=== PATIENT | male | born 1935 | race Caucasian/White ===

== ENCOUNTER 2018-07-01 08:55 | Inpatient (IN) ==
[2018-07-01] MEDS ORDERED: CeFAZolin Syr 2,000MG/20 ML 2,000 MG/20 ML SYRINGE IVPB ONE (09:21)
[2018-07-01] MEDS ORDERED: Ringers Solution, Lactated 1,000 ML IVC SCH (09:30)
--- NOTE | 2018-07-01 10:27 | History & Physical Report ---
Date of Encounter: 07/01/18 Time of Encounter: 10:27 24 Hour HP Update - Instructions Instructions: If the History and Physical is less than 30 days old and was completed prior to A.M. admission and or procedure and has NOT been updated on calendar day of procedure please complete this update prior to performing procedure. - Update Patient reports changes in Medical Condition: No Changes in examination, assessment, or condition: No Changes in Medication: No Preop tests/diagnostics Reviewed: Yes Surgery Remains Indicated: Yes Consent for Planned Operative Procedure(s) Verified: Yes - Pre-Operative Checklist Preoperative Checklist Indicated: No Prophylactic Antibiotic Ordered: Yes Is VTE Prophylaxis Indicated?: Yes
--- NOTE | 2018-07-01 10:28 | Discharge Summary ---
<eBto Mckeon - Last Filed: 07/01/18 11:26> Orders not resulted at time of discharge: Pending orders 07/01/18 09:17 Hemoglobin and Hematocrit [HEME] Routine Date of Encounter: 07/01/18 - Discharge Diagnosis (1) Left rotator cuff tear arthropathy Priority: Primary Status: Chronic (2) Status post reverse total arthroplasty of left shoulder Priority: Primary Status: Acute (3) Hypertension Priority: Secondary Status: Chronic Qualifiers: Hypertension type: unspecified Qualified Code(s): I10 - Essential (primary ) hypertension (4) Hyperlipidemia Priority: Secondary Status: Chronic Qualifiers: Hyperlipidemia type: unspecified Qualified Code(s): E78.5 - Hyperlipidemia , unspecified (5) Type 2 diabetes mellitus Priority: Secondary Status: Acute Qualifiers: Diabetes mellitus terminal worker insulin use: unspecified mcc insulin use status Diabetes mellitus complication status: without complication Qualified Code(s): E11.9 - Type 2 diabetes mellitus without complications (6) Status post aorto-coronary artery bypass graft Priority: Secondary Status: Chronic (7) Coronary artery disease Priority: Secondary Status: Chronic Qualifiers: Coronary Disease-Associated Artery/Lesion type: [place] artery [place] vs. transplanted heart: [place] heart Associated angina: angina presence unspecified Qualified Code(s): I25.10 - Atherosclerotic heart disease of [place] coronary artery without angina pectoris (8) Obstructive sleep apnea Priority: Secondary Status: Chronic - Hospital Course Hospital course: Mr. Dodson is a 82 year old male - Time Spent with Patient Total time spent providing and/or coordinating discharge services: - Discharge Medications Home Medications: Aspirin [[place] Aspirin EC] 81 mg PO DAILY 07/01/18 [History] Benazepril HCl [Lotensin] 20 mg PO DAILY 07/01/18 [History] Cetirizine HCl [Zyrtec] 10 mg PO DAILY 07/01/18 [History] Fenofibrate 60 mg PO DAILY 07/01/18 [History] Fluticasone Propionate Nasal [Flonase] 1 spray NS DAILY PRN 07/01/18 [History] Furosemide [Lasix] 20 mg PO DAILY 07/01/18 [History] HYDROcodone/Acet 5/325 mg [[place] 5-325 mg] 1 tab PO BID PRN 07/01/18 [History] Insulin Glargine,Hum.rec.anlog [Basaglar Kwikpen U-100] 7 - 13 unit SQ DAILY [History] LORazepam [Ativan] 0.5 mg PO Q6H PRN 07/01/18 [History] Metoprolol Succinate 100 mg PO DAILY 07/01/18 [History] Omeprazole [PriLOSEC] 40 mg PO DAILY 07/01/18 [History] Potassium Chloride [K-Tab ER] 20 meq PO Q48H 07/01/18 [History] Rosuvastatin Calcium [Crestor] 20 mg PO DAILY 07/01/18 [History] SitaGLIPtin [Januvia] 100 mg PO DAILY 07/01/18 [History] Allergies/Adverse Reactions: 3 Allergy/AdvReac Type Severity Reaction Status Date / Time NSAIDS (Non-Steroidal Allergy Gastrointestinal Verified 07/01/18 10:00 Anti-Inflamma Upset Primary care physician: Roby Engle MD - Patient Status Disposition: Home, Self-Care Condition: Good - Discharge Instructions Follow Up With: Nayana Arvizu PAC [Physician Cue Worker] - 07/09/18 8:45 am Roby Engle MD [Primary Care Provider] - Additional Instructions: Discharge Instructions: Total Shoulder Please call [facility] ([phone]), your Primary Care Physician, or report to the Emergency Room if you have any of the following symptoms: Nausea, vomiting, fever greater that 101.5, swelling, chest pain, shortness of breath, increased pain/redness/drainage/odor for your incision site, numbness/ tingling, or any other concerning symptoms. ACTIVITY: Always keep your arm in the sling. Do not raise your arm away from your body. Do not use your arm to help with getting in or out of bed. No weight bearing permitted. Only perform those exercises given to you by your therapist. Incentive Spirometer 10 times an hour. MEDICATIONS: Upon discharge resume your home medications. Take all the medications as prescribed. Take a stool softener if taking narcotic pain medications. Stool softeners are only effective if you drink enough fluids. Drink 6-8 glass of water or fluids a day, unless this is not allowed for another health problem. Despite using stool softeners, if you haven't had a bowel movement in 3 days, please switch to a gentle laxative. Gentle laxatives are sold over the counter. You should have a bowel movement within 24 hours, if not call the office. You will be discharged from the hospital with a prescription for pain medication. You are encouraged to decrease the use of narcotic pain medication as tolerated. Should you require a refill, please call the office. [facility] prescribes narcotic pain medication for only 4-6 weeks after surgery. If you require pain medication beyond this time period, you may be referred to your Primary Care Physician or to the Pain Clinic for further evaluation. Plan ahead for refills on pain medication as many narcotics either need to be picked up at the office or mailed. It is best to call 48-72 hours in advance of needing a prescription refill so you don't run out of medication. To help control the post-operative pain, you may take NSAIDs (Aleve,Advil, Motrin, Ibuprofen, Naprosyn) or Tylenol as prescribed on the bottle in addition to the pain medication. WOUND CARE: Leave the dressing on for 7-10 days. You may change the dressing if it becomes saturated greater than 50%. Do not get the dressing wet at anytime. Wash your hands with antibacterial soap, rinse and dry prior to any wound care. If you have guillaume the visiting nurse or rehab facility can remove the stapes 10-14 days after surgery and place steri-strips across the wound. Leave the steri-strips in place until they fall off on their own. You may let water from the shower run on top of the steri-strips. If you do not have a visiting nurse or rehab facility, you will need to return to the office at 10-14 days for the guillaume to be removed. If you have itching or redness around the dressing call the office. FOLLOW-UP: Please follow up with your surgeon in the orthopedic clinic, as scheduled <Helga Lipscomb - Last Filed: 07/02/18 13:01> Orders not resulted at time of discharge: Pending orders 07/01/18 11:14 US anesthesia pain block [US] Routine 07/01/18 12:37 Surgical Pathology [PTH] Routine 07/03/18 04:00 Hemoglobin and Hematocrit [HEME] AM 0400 Date of Encounter: 07/02/18 Time of Encounter: 12:00 - Discharge Diagnosis (1) Status post reverse total arthroplasty of left shoulder Priority: Primary Status: Acute (2) Type 2 diabetes mellitus Priority: Secondary Status: Acute Qualifiers: Diabetes mellitus terminal worker insulin use: unspecified mcc insulin use status Diabetes mellitus complication status: without complication Qualified Code(s): E11.9 - Type 2 diabetes mellitus without complications (3) Coronary artery disease Priority: Secondary Status: Chronic Qualifiers: Coronary Disease-Associated Artery/Lesion type: [place] artery [place] vs. transplanted heart: [place] heart Associated angina: angina presence unspecified Qualified Code(s): I25.10 - Atherosclerotic heart disease of [place] coronary artery without angina pectoris (4) Hyperlipidemia Priority: Secondary Status: Chronic Qualifiers: Hyperlipidemia type: unspecified Qualified Code(s): E78.5 - Hyperlipidemia , unspecified (5) Hypertension Priority: Secondary Status: Chronic Qualifiers: Hypertension type: unspecified Qualified Code(s): I10 - Essential (primary ) hypertension (6) Left rotator cuff tear arthropathy Priority: Primary Status: Chronic (7) Obstructive sleep apnea Priority: Secondary Status: Chronic (8) Status post aorto-coronary artery bypass graft Priority: Secondary Status: Chronic - Hospital Course Hospital course: Mr. Dodson is a 82 year old male status post Total Shoulder Replacment Reverse, left 07/01/18 with history of DMT2, HTN, HLD, CAD, JAMES. He had uneventful hospital course, participated with therapy. Stable for discharge. Patient seen at bedside, without complaints. A&O x 3 Afebrile, vital signs stable. Labs reviewed. H/H 14.6/42.6- stable, asymptomatic Pain control: adequate Participating in PT. All questions and concerns addressed. Educated on use of incentive spirometer. Encouraged ambulation and proper hydration. Patient educated on post-operative restrictions and post-operative care. Assessment and plan: Continue with postoperative care Discharge plan: Home , discharge today. Outpatient therapy scheduled to start tomorrow. - Time Spent with Patient Total time spent providing and/or coordinating discharge services: Date of admission: 07/01/18 14:05 Primary care physician: Roby Engle MD Consults: 07/01/18 14:06 Consult to Occupational Therapy [CONS] Routine Comment: post shoulder surgery Reason for Consult: post shoulder surgery Does patient have active BEDREST order?: No Is patient medically & hemodynamically stable?: Yes RT Post Op Consult [CONS] Routine Discharging clinician: Beto Mckeon Anticipated date of discharge: 07/02/18 Labs on day of discharge: Labs from last 24 hours 07/02/18 07/01/18 07/01/18 01:04 20:38 16:16 Hgb 14.6 Hct 42.6 POC Glucose 319 H 189 H 07/01/18 07/01/18 07/01/18 14:33 13:10 09:46 Hgb 14.4 D Hct 43.1 POC Glucose 151 H 159 H - Impressions ITS Impressions Shoulder X-Ray 07/01/18 10:32 IMPRESSION: Status post left shoulder arthroplasty without evidence of acute postoperative complication. D/ / 07/01/2018 14:22:52 Dequan Scott MD / [facility] Interpreting Provider: Dequan Scott MD - Patient Status Functional capacity at discharge: independent ambulation Overall status at discharge: patient is back to baseline - Diet and Activity Activity: as per physical therapy Diet: advance to your usual diet
[2018-07-01] MEDS ORDERED: *HR* FentaNYL (PF) 100 MCG/2 ML VIAL ONE (10:37)
[2018-07-01] MEDS ORDERED: *HR* Propofol 200 MG/20 ML VIAL IVP ONE (10:37)
[2018-07-01] MEDS ORDERED: *HR* Midazolam HCl 2 MG/2 ML VIAL ONE (10:37)
[2018-07-01] MEDS ORDERED: *HR* Rocuronium Bromide 50 MG/5 ML VIAL ONE (10:39)
[2018-07-01] MEDS ORDERED: MORPHINE SUL Oral CONC 10 MG/0.5 ML ORAL.SYG SL PRN (10:42)
[2018-07-01] MEDS ORDERED: *HR* OxyCODONE Immed Rel 5 MG TABLET PO PRN (10:42)
[2018-07-01] MEDS ORDERED: *HR* Labetalol 20 MG/4 ML SYRINGE IVP PRN (10:42)
[2018-07-01] MEDS ORDERED: *HR* Promethazine 25 MG/ML VIAL IVP PRN (10:42)
[2018-07-01] MEDS ORDERED: *HR* HYDROmorphone 2 MG TABLET PO PRN (10:42)
--- NOTE | 2018-07-01 11:09 | Anesthesia Evaluation PreOp ---
Date of Encounter: 07/01/18 Time of Encounter: 11:07 - Past History Planned Operation: Left Total Shoulder Cardiac History: HTN, Hyperlipidemia, Cardiac Surgery (CABG x 2, AVR in 2016), Cardiac Stent (stents x 2 in 2002) Pulmonary History: Former smoker (quit 50 years ago), Snore, JAMES Dx (does not use CPAP) PROJECT MANAGER FINANCE History: Denies Any Significant HX Other Medical History: Diabetes Type II Anesthesia History: No Prior Anesthetic Complications, Past Anesthesia Alcohol Use: none Drug use: none Medications and Allergies Aspirin [[place] Aspirin EC] 81 mg PO DAILY 07/01/18 [History] Benazepril HCl [Lotensin] 20 mg PO DAILY 07/01/18 [History] Cetirizine HCl [Zyrtec] 10 mg PO DAILY 07/01/18 [History] Fenofibrate 60 mg PO DAILY 07/01/18 [History] Fluticasone Propionate Nasal [Flonase] 1 spray NS DAILY PRN 07/01/18 [History] Furosemide [Lasix] 20 mg PO DAILY 07/01/18 [History] HYDROcodone/Acet 5/325 mg [[place] 5-325 mg] 1 tab PO BID PRN 07/01/18 [History] Insulin Glargine,Hum.rec.anlog [Basaglar Kwikpen U-100] 7 - 13 unit SQ DAILY [History] LORazepam [Ativan] 0.5 mg PO Q6H PRN 07/01/18 [History] Metoprolol Succinate 100 mg PO DAILY 07/01/18 [History] Omeprazole [PriLOSEC] 40 mg PO DAILY 07/01/18 [History] Potassium Chloride [K-Tab ER] 20 meq PO Q48H 07/01/18 [History] Rosuvastatin Calcium [Crestor] 20 mg PO DAILY 07/01/18 [History] SitaGLIPtin [Januvia] 100 mg PO DAILY 07/01/18 [History] 3 Allergy/AdvReac Type Severity Reaction Status Date / Time NSAIDS (Non-Steroidal Allergy Gastrointestinal Verified 07/01/18 10:00 Anti-Inflamma Upset - Meds/Allergy Pre-op Review Medications Reviewed: Yes Allergies Reviewed: Yes Beta Blockers on Current Med List: Yes If Beta Blockers taken, Date/Time (Last Dose taken): 07/01/2018 at 0800 Anesthesia Results - Labs Laboratory Tests 06/30/18 06/30/18 06/30/18 15:20 15:20 15:20 WBC 8.7 Hgb 17.1 H Hct 49.7 Plt Count 149 PT 11.6 INR 1.0 APTT 31.2 Sodium 135 L Potassium 4.7 BUN 32 H Creatinine 1.36 H - Imaging EKG: report reviewed (06/30/[address] DEVIATION AND MODERATE T-WAVE ABNORMALITY, CONSIDER LATERAL ISCHEMIA) Anesthesia Exam O2 Sat Height 1.78 m Height 1.78 m Weight 93.44 kg Weight 93.44 kg O2 Sat by Pulse Oximetry 96 Vital Signs Temp Pulse Resp BP Pulse Ox 97.8 F 60 16 123/72 96 07/01/18 09:27 07/01/18 09:27 07/01/18 09:27 07/01/18 09:27 07/01/18 09:27 Blood Glucose* 159 Height: 5'10" Weight: 206 lbs NPO (# of Hours): 8 Pain Scale: 7 (left shoulder) Pain Scale Used: Numeric (1 - 10) - HEENT Pupil (Motor): EOMI Mallampati: II Teeth: Edentulous Denture Type: Upper: Complete, Lower: Complete Oral Opening: Greater than 3 - PROJECT MANAGER FINANCE LOC: Oriented PROJECT MANAGER FINANCE Motor: Normal RUE, Normal RLE, Normal LLE, Normal Face, Deficit LUE PROJECT MANAGER FINANCE Sensory: Normal: RUE, LUE, RLE, LLE, Deficit: Face (complete blindness left eye) - Cardiac Rhythm: Regular Murmur: None - Pulmonary Breath Sounds: bilateral Clear Respiratory Effort: Symmetrical Anesthesia Assess/Plan ASA Score: 3 Modified Rocco Scale for Level of Consciousness: Cooperative, oriented, and tranquil Anesthetic Plan: General, Regional Monitoring Plan: Standard Monitors Recovery Plan: PACU
[2018-07-01] MEDS ORDERED: ROPIVACAINE HCL/PF 0.5% 30 ML VIAL ONE (11:21)
[2018-07-01] MEDS ORDERED: Bupivacaine/Clonidine Syringe 1 EACH SYRINGE ONE (11:21)
[2018-07-01] MEDS ORDERED: EPHEDrine 50 MG/ML VIAL ONE (11:54)
[2018-07-01] MEDS ORDERED: *HR* PHENYLEPHRINE 1,000 MCG/10 ML SYRINGE IVP ONE (11:57)
[2018-07-01] MEDS ORDERED: Ondansetron 4 MG/2 ML VIAL ONE (11:59)
[2018-07-01] MEDS ORDERED: Dexamethasone 4 MG/ML VIAL ONE (11:59)
--- NOTE | 2018-07-01 12:31 | Anesthesia Procedures ---
Date of Encounter: 07/01/18 Time of Encounter: 11:30 Procedures: Anesthesia - Nerve Block Procedure Date: 07/01/18 Time: 11:30 Allergies/Adv Reactions: NSAIDS Pre-op Diagnosis: L shoulder arthropathy Surgical Procedure: L total shoulder replacement Checklist: Correct Patient Identifier, Correct procedure, History checked Correct side: Left Blood Thinner: No Monitor Applied: EKG, BP, Pulse Oximetry Supplemental Oxygen via Nasal Cannula (L/min): 2 Sedation: Versed (mg): 2 Sedation: Fentanyl (mcg): 100 Indication: Post Op Analgesia Pre-op Neuro Deficits: No Block Type: Supraclavicular Catheter placed: No Ultrasound used: Yes Anatomy identified: Yes Visual spread of Local: Yes Neuro Stimulation: No Blood on Needle Aspiration: No Smooth Injection of Local: Yes Pain with Injection of Local: No Prep: Chlorhexadine Needle: 22 x 50 mm Stimuplex Local: 0.25% Bupivicaine w/Clonidine 20 mcg/cc, Ropivacaine Volume (cc): 50 Number of Attempts: 1 Complications: None/effective block Vitals: Last Vital Signs Temp 97.8 F 07/01/18 09:27 Pulse 60 07/01/18 09:27 Resp 16 07/01/18 09:27 BP 123/72 07/01/18 09:27 Pulse Ox 96 07/01/18 09:27
--- NOTE | 2018-07-01 12:47 | Orthopedic Operative Note ---
Date of procedure: 07/01/18 Pre-op diagnosis: Left shoulder cuff tear arthropathy Post-op diagnosis: same Procedure: Procedure: Total Shoulder Replacment Reverse, left Estimated blood loss: 75 cc Hardware: Metal and polyethylene replacement: Arthrex 28, +2 , 30 screw glenoid baseplate, 2 4.5 screws. 2 5.5 screw, 2+4 glenosphere, 12 humeral stem, poly insert 3 Exam Under anesthesia: Full motion no instability Procedural Notes: Irreparable tear supraspinatus tendon. Operative procedure: The patient was brought to the operating room and placed on the operating room table. After general anesthesia was administered the operative shoulder was examined. Findings were noted. The patient was placed in the modified beachchair position. All pressure points were padded appropriately. And the head was stabilized in the neutral position. The operative extremity was prepped and draped in the sterile surgical fashion. The patient received IV antibiotics prior to skin incision. A standard deltopectoral approach was made to the operative shoulder. Incision was made to the skin and subcutaneous tissue,hemo stasis was obtained with Bovie cautery. Using careful blunt dissection the cephalic vein was identified and mobilized medially. The deltopectoral interval was developed and the clavipectoral fascia was incised. The subscap was released off the lesser tuberosity and tagged with #2 FiberWire suture subscap was irreparable. The humerus was dislocated patient noted to have irreparable tear supraspinatus tendon, and the humeral cut was made along the anatomic neck. Anterior and posterior Bankart retractors were placed to expose the glenoid. The glenoid guide was seated and the centering hole was made. It was reamed with the appropriate reamer. The 28 mm, +2, 30 mm screw was seated and secured with (2 ) 4.5 screws and 2 5.5 screw. The baseplate was irrigated and dried and the 42+4 Glenosphere was seated and secured with the Cross taper. The Cross taper was tested and found to be secure the humerus was redislocated and prepared with the diaphyseal reamers, followed by a broaching process up to the appropriate size 12 in the patient's anatomic version. The metaphyseal reamer was then utilized. Trial reduction found the shoulder to be relocatable. Trial components were removed and 12 stem was impacted in place in the patient's anatomic version. Trial reduction found the shoulder to be relocatable and stable with the appropriate 3 [place] Trial component was removed and the real implant was seated and secured the shoulder was reduced. The shoulder had excellent motion and excellent stability and no evidence of dislocation. The deep tissue was irrigated with pulse irrigation. The deltopectoral interval was closed with a running #1 PDS suture, subcutaneous tissue was irrigated and closed with 0 PDS suture, the skin was closed with Dermabond. The patient was placed in a sterile dressing, abduction brace and extubated. The patient was then transferred to the recovery room in stable condition. Anesthesia: GETA Surgeon: Beto Mckeon Was there an records management assistant present: No Estimated blood loss (cc): 75 Condition: stable Disposition: PACU
--- NOTE | 2018-07-01 13:26 | Anesthesia Evaluation Post Op ---
Date of Encounter: 07/01/18 Time of Encounter: 13:25 - Vital Signs Vital Signs: Selected Entries 07/01/18 13:24 Temperature 97.5 F L Pulse Rate 65 Respiratory Rate 12 Blood Pressure 126/67 O2 Sat by Pulse Oximetry 97 - Lungs Lungs: Clear Ascult./Percussion - Airway Airway: Non-obstructed - Cardiovascular Regular Rate - Mental Status Mental Status: Alert & Oriented, Answers Appropriately (very comfortable, good block) - Nausea Vomiting Nausea Vomiting: Not Present - Hydration Hydration: Ice chips - Discharge PostOp Status: Transfer Patient to floor
[2018-07-01 13:32] LABS: Hematocrit 43.1 % (37.5-50.1); Hemoglobin 14.4 g/dL (12.9-16.9)
[2018-07-01] MEDS ORDERED: traMADol 50 MG TABLET PO PRN (14:06)
[2018-07-01] MEDS ORDERED: Ondansetron 4 MG/2 ML VIAL IVP PRN (14:06)
[2018-07-01] MEDS ORDERED: Fluticasone Propionate Nasal 50 MCG/SPRAY BOTTLE NS PRN (14:06)
[2018-07-01] MEDS ORDERED: MOM Conc 10 ML UD.LIQ PO PRN (14:06)
[2018-07-01] MEDS ORDERED: *HR* Dextrose 50 % in Water (Syg) 50 ML SYRINGE IVP PRN (14:06)
[2018-07-01] MEDS ORDERED: Naloxone 0.4 MG/ML INJ IVP PRN (14:06)
[2018-07-01] MEDS ORDERED: D5% in Water 1,000 ML IVC PRN (14:06)
[2018-07-01] MEDS ORDERED: Sennosides 8.6 MG TABLET PO PRN (14:06)
[2018-07-01] MEDS ORDERED: Dextrose Gel 15 GM/37.5 ML TUBE PO PRN ×2 (14:06)
[2018-07-01] MEDS ORDERED: Temazepam 15 MG CAPSULE PO PRN (14:06)
[2018-07-01] MEDS: Insulin LISPRO 300 UNITS/3 ML VIAL SQ SCH ×3 (15:40→20:45)
[2018-07-01] MEDS: *HR* Enoxaparin 30 MG/0.3 ML SYRINGE SQ SCH (16:24)
[2018-07-01] MEDS: *HR* OxyCODONE Immed Rel 5 MG TABLET PO PRN (16:24)
[2018-07-01] MEDS ORDERED: *HR* Enoxaparin 30 MG/0.3 ML SYRINGE SQ SCH (18:00)
[2018-07-01] MEDS: *HR* LORazepam 0.5 MG TABLET PO PRN (20:38)
[2018-07-01] MEDS: *HR* OxyCODONE/APAP 5/325 TABLET PO PRN (20:38)
[2018-07-01] MEDS: Ringers Solution, Lactated 1,000 ML IVC SCH (22:48)
[2018-07-02 01:23] LABS: Hematocrit 42.6 % (37.5-50.1); Hemoglobin 14.6 g/dL (12.9-16.9)
[2018-07-02] MEDS: *HR* LORazepam 0.5 MG TABLET PO PRN ×2 (03:57→13:36)
[2018-07-02] MEDS: *HR* Enoxaparin 30 MG/0.3 ML SYRINGE SQ SCH ×2 (05:15→17:02)
[2018-07-02] MEDS: *HR* OxyCODONE Immed Rel 5 MG TABLET PO PRN ×4 (08:29→22:29)
[2018-07-02] MEDS: Lisinopril 20 MG TABLET PO SCH (08:31)
[2018-07-02] MEDS: Metoprolol XL (24 HR) Succ 50 MG TAB.ER.24H PO SCH (08:32)
[2018-07-02] MEDS: Furosemide 20 MG TABLET PO SCH (08:32)
[2018-07-02] MEDS: *HR* SitaGLIPtin 100 MG TABLET PO SCH (08:33)
[2018-07-02] MEDS: Loratadine 10 MG TABLET PO SCH (08:33)
[2018-07-02] MEDS: Aspirin Enteric Coated 81 MG Tablet PO SCH (08:33)
--- NOTE | 2018-07-02 08:36 | Orthopedics Progress Note ---
Date of Encounter: 07/02/18 Time of Encounter: 08:35 - Assessment and Plan (1) Left rotator cuff tear arthropathy Current Visit: Yes Status: Chronic (2) Status post reverse total arthroplasty of left shoulder Current Visit: Yes Status: Acute (3) Hypertension Current Visit: Yes Status: Chronic Qualifiers: Hypertension type: unspecified Qualified Code(s): I10 - Essential (primary ) hypertension (4) Hyperlipidemia Current Visit: Yes Status: Chronic Qualifiers: Hyperlipidemia type: unspecified Qualified Code(s): E78.5 - Hyperlipidemia , unspecified (5) Type 2 diabetes mellitus Current Visit: Yes Status: Acute Qualifiers: Diabetes mellitus manager long term care insulin use: unspecified group home insulin use status Diabetes mellitus complication status: without complication Qualified Code(s): E11.9 - Type 2 diabetes mellitus without complications (6) Status post aorto-coronary artery bypass graft Current Visit: Yes Status: Chronic (7) Coronary artery disease Current Visit: Yes Status: Chronic Qualifiers: Coronary Disease-Associated Artery/Lesion type: [place] artery [place] vs. transplanted heart: [place] heart Associated angina: angina presence unspecified Qualified Code(s): I25.10 - Atherosclerotic heart disease of [place] coronary artery without angina pectoris (8) Obstructive sleep apnea Current Visit: Yes Status: Chronic Subjective Interval history: Patient was seen this morning doing well without complaints. Afebrile vital signs stable. Operative extremity: Neurovascularly intact Dressing clean dry and intact Calves nontender Assessment and plan: Continue with postoperative care Hematocrit 42 discharged today Objective Vital signs: Vital Signs Temp Pulse Resp BP Pulse Ox 07/02/18 06:27 97.6 F 78 16 128/67 95 07/02/18 04:15 97.9 F 70 17 124/66 93 07/01/18 23:48 98.8 F 75 16 112/73 93 07/01/18 21:02 97.9 F 79 16 120/77 94 07/01/18 19:33 99 07/01/18 16:05 97.8 F 71 18 127/85 99 07/01/18 14:36 97.1 F L 67 16 128/87 96 07/01/18 13:50 97.1 F L 66 16 116/77 95 07/01/18 13:24 97.5 F L 65 12 126/67 97 07/01/18 13:14 65 16 123/70 95 07/01/18 13:04 64 14 117/71 95 07/01/18 12:54 98.6 F 65 12 102/59 96 07/01/18 09:27 97.8 F 60 16 123/72 96 Intake and Output 07/01/18 07/02/18 07/02/18 23:59 07:59 15:59 Intake Total 540 / 540 300 / 300 Balance 540 / 540 300 / 300 Intake: IV Fluids 100 / 100 Ancef 2,000 MG In 0.9 % Sodium 100 / 100 Chloride 100 ML @ 200 mls/hr IVPB Q8H [facility] Rx#:[id number] Oral 440 / 440 300 / 300 Other: Meal Dinner Percent of Meal Consumed 100% # Voids 1 1 Weight 93.3 kg Blood Glucose* 319 155 Patient Weight 07/02/18 23:59 Weight 93.3 kg - Labs CBC & BMP: 07/02/18 01:04 Labs: Abnormal lab results POC Glucose 319 mg/dL (70-99) H 07/01/18 20:38 - VTE Documentation of Mechanical Device: Venous foot pump, device Consult Discharge Plan - Plan Referrals: Roby Engle MD [Primary Care Provider] -
[2018-07-02] MEDS: Insulin LISPRO 300 UNITS/3 ML VIAL SQ SCH ×4 (08:41→22:54)
[2018-07-02] MEDS ORDERED: Acetaminophen 325 MG TABLET PO PRN (13:16)
[2018-07-02] MEDS: Fenofibrate 54 MG TABLET PO SCH (13:52)
[2018-07-02] MEDS: Ringers Solution, Lactated 1,000 ML IVC SCH ×2 (13:55→17:01)
[2018-07-02] MEDS ORDERED: Acetaminophen IV 1,000 MG/100 ML INFUS..BTL IVPB ONE (14:26)
[2018-07-02] MEDS: Ketorolac 15 MG/ML VIAL IVP PRN (14:31)
[2018-07-02] MEDS ORDERED: Dexamethasone 4 MG/ML VIAL IVP ONE (17:15)
--- NOTE | 2018-07-02 18:54 | Event Note ---
Date of Encounter: 07/02/18 Time of Encounter: 17:00 07/02/18 17:20: I last spoke with patient around 12pm and he was doing well at that time and ready to be discharged. However, shortly after that it seems the nerve block wore off and he developed uncontrollable pain. We did add tylenol, flexeril and toradol. is stating that the patient's pain is not controlled and she is upset asking for "pain shot". We discussed with her that there is a national shortage and giving those medications is not an option. I reassessed the patient around 4:45pm and he seemed drowsy. He would dose off then wake up and sit up in bed. He appears to be uncomfortable but not in distress. It was explained to the that with the drowsiness he is experiencing from the pain medication we do not want to add more pain medication which could worsen these side effects. Recommend he continue on pain medication on schedule as ordered as long as vitals continue to stay stable. Continue with the toradol for total of 3 doses. Will add lidoderm patch now. If still no improvement discussed with nurse that we can try decadron injection but this could increase his glucose for patient to be aware of this. Also discussed with patient option of adding gabapentin but declined at this time. Patient will NOT be discharged today and will stay for pain control.
[2018-07-02] MEDS: *HR* OxyCODONE/APAP 5/325 TABLET PO PRN (20:48)
[2018-07-03] MEDS: *HR* OxyCODONE Immed Rel 5 MG TABLET PO PRN (03:28)
[2018-07-03 04:42] LABS: Hematocrit 41.9 % (37.5-50.1); Hemoglobin 13.9 g/dL (12.9-16.9)
[2018-07-03] MEDS: *HR* Enoxaparin 30 MG/0.3 ML SYRINGE SQ SCH (06:01)
[2018-07-03] MEDS: *HR* OxyCODONE/APAP 5/325 TABLET PO PRN ×2 (06:01→14:45)
--- NOTE | 2018-07-03 06:25 | Orthopedics Progress Note ---
Date of Encounter: 07/03/18 Time of Encounter: 06:24 - Assessment and Plan (1) Left rotator cuff tear arthropathy Current Visit: Yes Status: Chronic (2) Status post reverse total arthroplasty of left shoulder Current Visit: Yes Status: Acute (3) Hypertension Current Visit: Yes Status: Chronic Qualifiers: Hypertension type: unspecified Qualified Code(s): I10 - Essential (primary ) hypertension (4) Hyperlipidemia Current Visit: Yes Status: Chronic Qualifiers: Hyperlipidemia type: unspecified Qualified Code(s): E78.5 - Hyperlipidemia , unspecified (5) Type 2 diabetes mellitus Current Visit: Yes Status: Acute Qualifiers: Diabetes mellitus lobsterman insulin use: unspecified alf insulin use status Diabetes mellitus complication status: without complication Qualified Code(s): E11.9 - Type 2 diabetes mellitus without complications (6) Status post aorto-coronary artery bypass graft Current Visit: Yes Status: Chronic (7) Coronary artery disease Current Visit: Yes Status: Chronic Qualifiers: Coronary Disease-Associated Artery/Lesion type: [place] artery [place] vs. transplanted heart: [place] heart Associated angina: angina presence unspecified Qualified Code(s): I25.10 - Atherosclerotic heart disease of [place] coronary artery without angina pectoris (8) Obstructive sleep apnea Current Visit: Yes Status: Chronic Subjective Interval history: Patient was seen this morning discharge held secondary to pain control. Doing a little bit better this morning. Afebrile vital signs stable. Operative extremity: Neurovascularly intact Dressing clean dry and intact [place] nontender Increased swelling left upper extremity Assessment and plan: Continue with postoperative care obtain Doppler exam Plan for discharged today Objective Vital signs: Vital Signs Temp Pulse Resp BP Pulse Ox 07/03/18 03:32 98.3 F 84 16 150/80 97 07/02/18 22:36 98.0 F 77 16 144/80 93 07/02/18 20:35 98 07/02/18 17:41 98 F 69 15 131/81 07/02/18 14:08 65 130/64 94 07/02/18 06:27 97.6 F 78 16 128/67 95 Intake and Output 07/02/18 07/02/18 07/03/18 15:59 23:59 07:59 Intake Total 240 / 240 800 / 800 1700 / 1700 Balance 240 / 240 800 / 800 1700 / 1700 Intake: IV Fluids 800 / 800 1000 / 1000 Lactated Ringers 1,000 ML @ 75 700 / 700 1000 / 1000 mls/hr IVC .[id number] [facility] Rx#: [id number] Ofirmev 1,000 mg/100 ml 1,000 100 / 100 mg In 100 ml @ 400 mls/hr IVPB ONCE ONE Rx#:[id number] Oral 240 / 240 700 / 700 Other: Meal Breakfast Percent of Meal Consumed 100% # Voids 1 Blood Glucose* 184 - Labs CBC & BMP: 07/03/18 03:46 Labs: Abnormal lab results POC Glucose 162 mg/dL (70-99) H 07/02/18 17:00 - VTE Documentation of Mechanical Device: Venous foot pump, device Consult Discharge Plan - Plan Additional Instructions: Discharge Instructions: Total Shoulder Please call [facility] ([phone]), your Primary Care Physician, or report to the Emergency Room if you have any of the following symptoms: Nausea, vomiting, fever greater that 101.5, swelling, chest pain, shortness of breath, increased pain/redness/drainage/odor for your incision site, numbness/ tingling, or any other concerning symptoms. ACTIVITY: Always keep your arm in the sling. Do not raise your arm away from your body. Do not use your arm to help with getting in or out of bed. No weight bearing permitted. Only perform those exercises given to you by your therapist. Incentive Spirometer 10 times an hour. MEDICATIONS: Upon discharge resume your home medications. Take all the medications as prescribed. Take a stool softener if taking narcotic pain medications. Stool softeners are only effective if you drink enough fluids. Drink 6-8 glass of water or fluids a day, unless this is not allowed for another health problem. Despite using stool softeners, if you haven't had a bowel movement in 3 days, please switch to a gentle laxative. Gentle laxatives are sold over the counter. You should have a bowel movement within 24 hours, if not call the office. You will be discharged from the hospital with a prescription for pain medication. You are encouraged to decrease the use of narcotic pain medication as tolerated. Should you require a refill, please call the office. [facility] prescribes narcotic pain medication for only 4-6 weeks after surgery. If you require pain medication beyond this time period, you may be referred to your Primary Care Physician or to the Pain Clinic for further evaluation. Plan ahead for refills on pain medication as many narcotics either need to be picked up at the office or mailed. It is best to call 48-72 hours in advance of needing a prescription refill so you don't run out of medication. To help control the post-operative pain, you may take NSAIDs (Aleve,Advil, Motrin, Ibuprofen, Naprosyn) or Tylenol as prescribed on the bottle in addition to the pain medication. WOUND CARE: Leave the dressing on for 7-10 days. You may change the dressing if it becomes saturated greater than 50%. Do not get the dressing wet at anytime. Wash your hands with antibacterial soap, rinse and dry prior to any wound care. If you have guillaume the visiting nurse or rehab facility can remove the stapes 10-14 days after surgery and place steri-strips across the wound. Leave the steri-strips in place until they fall off on their own. You may let water from the shower run on top of the steri-strips. If you do not have a visiting nurse or rehab facility, you will need to return to the office at 10-14 days for the guillaume to be removed. If you have itching or redness around the dressing call the office. FOLLOW-UP: Please follow up with your surgeon in the orthopedic clinic, as scheduled Referrals: Nayana Arvizu PAC [Physician Technician [employer]] - 07/09/18 8:45 am Roby Engle MD [Primary Care Provider] -
[2018-07-03] MEDS: Aspirin Enteric Coated 81 MG Tablet PO SCH (08:36)
[2018-07-03] MEDS: Fenofibrate 54 MG TABLET PO SCH (08:37)
[2018-07-03] MEDS: Lisinopril 20 MG TABLET PO SCH (08:37)
[2018-07-03] MEDS: Metoprolol XL (24 HR) Succ 50 MG TAB.ER.24H PO SCH (08:37)
[2018-07-03] MEDS: Loratadine 10 MG TABLET PO SCH (08:38)
[2018-07-03] MEDS: *HR* SitaGLIPtin 100 MG TABLET PO SCH (08:38)
[2018-07-03] MEDS: Furosemide 20 MG TABLET PO SCH (08:38)
[2018-07-03] MEDS: Ketorolac 15 MG/ML VIAL IVP PRN (08:38)
[2018-07-03] MEDS: Insulin LISPRO 300 UNITS/3 ML VIAL SQ SCH (08:46)
[2018-07-03 11:09] VITALS: BP 124/85
== END 2018-07-03 15:01 | disposition home or self-care (01) | DRG 483 ==
LOC: SAMDAY 08:55 → 3NENU 14:05
PROVIDERS: ADMIT Orthopaedic Surgery; ATTEND Orthopaedic Surgery